=== PATIENT | male | born 1985 | race African-American/Black ===

== ENCOUNTER 2018-09-25 09:29 | Emergency (ER) | payer OTHER ==
[2018-09-25 09:36] VITALS: BP 130/75; PULSE 89; TEMP 98.4; BMI 24.3
[2018-09-25 10:30] LABS: BASO % 0.5 % (0-2.0); EOS % 0.7 % (0-4.5); HEMATOCRIT 43.2 % (35.4-49); HEMOGLOBIN 15.1 GM/dL (11.7-16.9); LYMPH % 23.2 % (8-40); MCHC 34.9 g/dl (32.0-35.9); MEAN CELL VOLUME 91.7 fl (80-96); MONO % 8.1 % (3.8-10.2); NEUT % 67.5 % (42.8-82.8); PLATELET COUNT 248 K/MM3 (134-434); RBC 4.71 M/mm3 (4.00-5.60); RDW 14.1 % (11.9-15.9); WHITE BLOOD COUNT 3.9 K/mm3 (4.0-10.0)
[2018-09-25 10:54] LABS: ALBUMIN 3.8 g/dl (3.4-5.0); ALK PHOS 76 U/L (45-117); ANION GAP 4 MMOL/L (8-16); BILIRUBIN,TOTAL 0.3 mg/dL (0.2-1); BLOOD UREA NITROGEN 11 mg/dL (7-18); CALCIUM 8.8 mg/dL (8.5-10.1); CHLORIDE 106 mmol/L (98-107); CO2 26 mmol/L (21-32); CREATININE 1.1 mg/dL (0.55-1.3); GLUCOSE,RANDOM 87 mg/dL (74-106); LIPASE 63 U/L (73-393); MAGNESIUM 2.2 mg/dL (1.8-2.4); POTASSIUM 4.3 mmol/L (3.5-5.1); SGOT/AST 18 U/L (15-37); SGPT/ALT 18 U/L (13-61); SODIUM 136 mmol/L (136-145); TOT PROT 7.8 g/dl (6.4-8.2)
--- NOTE | 2018-09-25 11:06 | PDOC ---
History of Present Illness - General Chief Complaint: Pain Stated Complaint: ABD PAIN Time Seen by Provider: 09/25/18 09:46 History Source: Patient Exam Limitations: No Limitations - History of Present Illness Initial Comments: 09/25/18 10:09 33-year-old male presents the emergency room with complaints of nonproductive cough for the past week now causing left-sided rib pain worsened with deep breathing and coughing. Patient also stating upper abdominal sharp pain intermittently worsened at night causing him one episode of vomiting yesterday and has had 3 episodes of diarrhea over the past week. Patient denies recent travel, fever, chills, night sweats, weight loss, change in diet or GI history. Patient does state smoke cigarettes on a daily basis along with marijuana. Timing/Duration: 1 week Severity: mild Associated Symptoms: reports: nausea/vomiting Past History - Travel Traveled outside of the country in the last 30 days: No Close contact w/someone who was outside of country & ill: No - Past Medical History Allergies/Adverse Reactions: Allergies Allergy/AdvReac Type Severity Reaction Status Date / Time No Known Allergies Allergy Verified 09/25/18 09:36 COPD: No - Suicide/Smoking/Psychosocial Hx Smoking History: Current every day smoker Number of Cigarettes Smoked Daily: 20 Information on smoking cessation initiated: No Drug/Substance Use Hx: Yes Substance Use Type: Marijuana Patient Lives Alone: No Lives with/in: spouse/SO Review of Systems - Review of Systems Able to Perform ROS?: Yes Constitutional: No: Symptoms Reported HEENTM: No: Symptoms Reported Respiratory: Yes: Cough Cardiac (ROS): No: Symptoms Reported ABD/GI: Yes: Diarrhea, Nausea, Vomiting, Indigestion, Abdominal cramping : No: Symptoms Reported Musculoskeletal: No: Symptoms Reported Integumentary: No: Symptoms Reported Neurological: No: Symptoms reported Hematologic/Lymphatic: No: Symptoms Reported *Physical Exam - Vital Signs Last Vital Signs Temp Pulse Resp BP Pulse Ox 98.4 F 89 18 130/75 99 09/25/18 09:33 09/25/18 09:33 09/25/18 09:33 09/25/18 09:33 09/25/18 09:33 - Physical Exam General Appearance: Yes: Nourished, Disheveled. No: Apparent Distress HEENT: positive: EOMI, CHANTEL, TMs Normal, Pharynx Normal. negative: Pale Conjunctivae Neck: positive: Supple Respiratory/Chest: positive: Chest Tender (bilateral ribs near the mid axillary line), Lungs Clear, Normal Breath Sounds. negative: Respiratory Distress, Accessory Muscle Use Cardiovascular: positive: Regular Rhythm, Regular Rate. negative: Murmur Gastrointestinal/Abdominal: positive: Normal Bowel Sounds, Soft, Distended, Tenderness (mild midepigastric. ) Musculoskeletal: negative: CVA Tenderness Extremity: positive: Normal Capillary Refill. negative: Pedal Edema Integumentary: positive: Normal Color, Warm, Moist Neurologic: positive: Motor Strength 5/5 (ambulatory) Moderate Sedation - Procedure Monitoring Vital Signs: Procedure Monitoring Vital Signs Temperature 98.4 F 09/25/18 09:33 Pulse Rate 89 09/25/18 09:33 Respiratory Rate 18 09/25/18 09:33 Blood Pressure 130/75 09/25/18 09:33 O2 Sat by Pulse Oximetry (%) 99 09/25/18 09:33 ED Treatment Course - LABORATORY CBC & Chemistry Diagram: 09/25/18 10:18 09/25/18 10:18 - ADDITIONAL ORDERS Additional order review: 09/25/18 10:18 RBC 4.71 MCV 91.7 MCHC 34.9 RDW 14.1 MPV 7.0 L Neutrophils % 67.5 Lymphocytes % 23.2 Monocytes % 8.1 Eosinophils % 0.7 Basophils % 0.5 - RADIOLOGY Radiology Studies Ordered: Category Date Time Status CHEST PA & LAT [RAD] Stat Radiology 09/25/18 10:00 Ordered Medical Decision Making - Medical Decision Making 09/25/18 10:14 CC: Cough, upper abd pain with n/v x1 and diarrhea x 3 over the past week. Exam: LCTA, aiden chest tenderness and mild epigastric tenderness Plan: cxr, urine, and labs 09/25/18 11:17 Laboratory Tests 09/25/18 09/25/18 10:18 10:18 WBC 3.9 L Hgb 15.1 Hct 43.2 MPV 7.0 L Absolute Neuts (auto) 2.6 Neutrophils % 67.5 Lymphocytes % 23.2 Monocytes % 8.1 Sodium 136 Potassium 4.3 Chloride 106 Carbon Dioxide 26 BUN 11 Creatinine 1.1 Random Glucose 87 Calcium 8.8 Magnesium 2.2 Total Bilirubin 0.3 AST 18 ALT 18 Alkaline Phosphatase 76 Total Protein 7.8 Lipase 63 L Chest x-ray negative for acute findings. Awaiting urine results. Patient currently sleeping in [place] chair 09/25/18 11:49 Laboratory Tests 09/25/18 10:40 Urine Color Yellow Urine Appearance Slcloudy Urine pH 5.0 Ur Specific [place] 1.033 Urine Protein 1+ H Urine Ketones Trace H Urine Blood Negative Urine Nitrite Negative Urine Bilirubin 2.0 Urine Urobilinogen 4.0 e.u/dl Urine WBC (Auto) Pending Urine RBC (Auto) Pending Pt requesting something for the epigastric pain and mild nausea. pt ordered for GI cocktail and nausea *DC/Admit/Observation/Transfer Diagnosis at time of Disposition: Cough, Epigastric abdominal pain - Discharge Dispostion Disposition: HOME Condition at time of disposition: Good - Referrals - Patient Instructions Printed Discharge Instructions: DI for Epigastric Pain Additional Instructions: Please avoid spicy greasy food and add starches to your diet. Please take Zofran as needed for nausea and return to ED if symptoms worsen - Post Discharge Activity
[2018-09-25 11:18] LABS: URINE APPEARANCE SLCLOUDY; URINE GLUCOSE (UA) NEGATIVE (NEGATIVE); URINE KETONE TRACE (NEGATIVE); URINE LEUK ESTERASE NEGATIVE (NEGATIVE); URINE NITRITE NEGATIVE (NEGATIVE); URINE PROTEIN 1+ (NEGATIVE); URINE UROBILINOGEN 4.0 E.U/dl mg/dL (0.2-1.0)
[2018-09-25 11:47] LABS: URINE COLOR YELLOW
[2018-09-25] MEDS ORDERED: MAG HYDROX/AL HYDROX/SIMETH 30 ML UNIT-DOSE CUP PO ONE (11:51)
[2018-09-25] MEDS ORDERED: LIDOCAINE VISCOUS 2% ORAL/TOP 20 ML UNIT-DOSE CUP MM ONE (11:51)
[2018-09-25] MEDS ORDERED: ONDANSETRON *ODT* 4 MG TABLET SL ONE (11:51)
[2018-09-25] MEDS ORDERED: HYOSCYAMINE SULFATE 0.125 MG *ODT PO ONE (11:52)
[2018-09-25 11:54] LABS: URINE MUCUS MANY
[2018-09-25] MEDS ORDERED: MAG HYDROX/AL HYDROX/SIMETH 30 ML UNIT-DOSE CUP ONE (12:15)
[2018-09-25] MEDS ORDERED: ONDANSETRON *ODT* 4 MG TABLET ONE (12:15)
[2018-09-25] MEDS ORDERED: LIDOCAINE VISCOUS 2% ORAL/TOP 20 ML UNIT-DOSE CUP ONE (12:15)
== END 2018-09-25 12:23 | disposition home or self-care (01) ==
LOC: JER 09:29
DX: R10.84 Generalized abdominal pain (principal); R11.2 Nausea with vomiting, unspecified; R19.7 Diarrhea, unspecified; R05 Cough
CPT/HCPCS: 36415; 71046-TC-FY; 80053; 81003; 81015; 83690; 83735; 85025; 99281-25; Q0162